=== PATIENT | male | born 1960 | race African-American/Black ===

== ENCOUNTER 2019-08-03 01:09 | Emergency (ER) | payer OTHER ==
[~2019-08-03] VITALS: Ht 182.9 cm; Wt 100.0 kg
[2019-08-03] MEDS ORDERED: SODIUM CHLORIDE 0.9% 1,000 ML IV ONE (03:22)
[2019-08-03 03:38] LABS: CHLORIDE 106 mEq/L (98-107)
[2019-08-03 03:40] LABS: BASOPHILS % 0.3 % (0.0-2.0); EOSINOPHILS % 1.3 % (0.0-5.0); HEMATOCRIT. 43.2 % (42.0-52.0); HEMOGLOBIN. 15.4 g/dL (14.0-18.0); LYMPHOCYTES % 25.9 % (20.0-50.0); MEAN CORPUSCULAR HEMOGLOBIN 33.1 pg (28.0-32.0); MEAN CORPUSCULAR VOLUME 92.7 fL (80.0-94.0); MEAN PLATELET VOLUME 7.9 fl (7.4-10.4); MONOCYTES % 6.7 % (2.0-8.0); NEUTROPHILS % 65.8 % (40.0-76.0); PLATELET 238 x1000/uL (130-400); RED BLOOD CELL COUNT 4.66 mill/uL (4.7-6.1); RED CELL DISTRIBUTION WIDTH 13.2 % (11.6-14.6)
[2019-08-03 03:40] LABS: CLARITY URINE CLEAR (CLEAR); COLOR URINE DARK YELLOW (YELLOW); KETONES URINE 3+ (NEGATIVE); LEUKOCYTE ESTERASE URINE NEGATIVE (NEGATIVE); NITRITE URINE NEGATIVE (NEGATIVE); OCCULT BLOOD URINE NEGATIVE (NEGATIVE); PH URINE 7.5 (4.5-8.0); PROTEIN URINE TRACE (NEGATIVE); SPECIFIC GRAVITY URINE 1.034 (1.005-1.030)
[2019-08-03 03:44] LABS: ETHANOL BLOOD < 10 mg/dL
[2019-08-03 05:40] VITALS: BP 151/93
== END 2019-08-03 05:49 | disposition home or self-care (01) ==
LOC: ER 01:09
DX: R10.30 Lower abdominal pain, unspecified (principal); K29.00 Acute gastritis without bleeding; Z85.46 Personal history of malignant neoplasm of prostate; Z90.79 Acquired absence of other genital organ(s); Z88.8 Allergy status to other drugs, medicaments and biological substances
CPT/HCPCS: 36415; 80053; 80320; 81003; 83690; 85025; 96360; 99283; J7030; G0480

== ENCOUNTER 2025-09-16 07:35 | Inpatient (IN) | payer OTHER ==
[~2025-09-16] VITALS: Ht 175.3 cm; Wt 110.2 kg
[2025-09-16] VITALS (14 sets, daily range): BP systolic 139–169; BP diastolic 91–103; PULSE 73–91; RESP 19–30; TEMP 35.9–36.4; O2SAT 97–100
[2025-09-16] MEDS: MAGNESIUM 2 G PREMIX 50 ML IV ONE (07:59)
[2025-09-16] MEDS: METHYLPREDNISOLONE SOD SUCC 125MG/2ML (ACT-O-VIAL) IV ONE (07:59)
[2025-09-16] MEDS: ALBUTEROL (0.083%) 2.5MG/3ML NEB HHN SCH (08:52)
[2025-09-16] MEDS: IPRATROPIUM BROMIDE (0.02%) 0.5MG/2.5ML NEB HHN SCH (08:52)
[2025-09-16 09:19] LABS: BASOPHILS % 0.7 % (0.0-2.0); EOSINOPHILS % 2.8 % (0.0-5.0); HEMATOCRIT. 43.9 % (42.0-52.0); HEMOGLOBIN. 14.9 g/dL (14.0-18.0); LYMPHOCYTES % 19.5 % (20.0-50.0); MEAN PLATELET VOLUME 7.3 fl (7.4-10.4); MONOCYTES % 8.8 % (2.0-8.0); NEUTROPHILS % 68.2 % (40.0-76.0); PLATELET 253 x1000/uL (130-400); RED BLOOD CELL COUNT 4.65 mill/uL (4.7-6.1); RED CELL DISTRIBUTION WIDTH 13.6 % (11.6-14.6)
[2025-09-16 09:38] LABS: CREATININE 1.1 mg/dL (0.6-1.3); TROPONIN I HIGH SENSITIVITY 11 ng/L (3.0-53); UREA NITROGEN BLOOD 11 mg/dL (9-23)
[2025-09-16] MEDS: LEVOFLOXACIN 500MG PREMIX 100 ML IV ONE (10:29)
[2025-09-16] MEDS ORDERED: CLONIDINE 0.1MG TABLET PO PRN (12:30)
[2025-09-16] MEDS ORDERED: ONDANSETRON HCL 4MG/2ML INJ IV PRN (12:30)
[2025-09-16] MEDS ORDERED: ACETAMINOPHEN 325MG TABLET PO PRN (12:30)
[2025-09-16] MEDS ORDERED: DOCUSATE SODIUM 100MG CAPSULE PO PRN (12:30)
[2025-09-16] MEDS ORDERED: IPRATROPIUM/ALBUTEROL 0.5-3(2.5)MG/3ML NEB HHN PRN (12:30)
[2025-09-16] MEDS: ACETAMINOPHEN 325MG TABLET PO PRN (13:51)
[2025-09-16] MEDS: ENOXAPARIN 30MG/0.3ML SYR SUBCUT SCH (17:53)
[2025-09-16] MEDS: GUAIFENESIN/DM 600MG/30MG ER TAB 12HR PO PRN (18:05)
[2025-09-16] MEDS: BENZONATATE 100MG CAPSULE PO PRN (18:06)
[2025-09-16] MEDS: FLUTICASONE PROPIONATE 50MCG/SPRAY BOTTLE BOTHNSTRLS SCH (18:07)
[2025-09-16] MEDS: IPRATROPIUM/ALBUTEROL 0.5-3(2.5)MG/3ML NEB HHN SCH (20:08)
[2025-09-16] MEDS: GUAIFENESIN 600MG ER TABLET PO SCH (21:03)
[2025-09-17] VITALS (13 sets, daily range): BP systolic 122–153; BP diastolic 74–105; PULSE 79–87; RESP 19–26; TEMP 36.4–37.2; O2SAT 91–97
[2025-09-17 06:19] LABS: CREATININE 0.9 mg/dL (0.6-1.3); UREA NITROGEN BLOOD 15 mg/dL (9-23)
[2025-09-17 06:21] LABS: ASPARTATE AMINOTRANSFERASE 15 IU/L (<34); BILIRUBIN TOTAL 1.1 mg/dL (0.1-1.0); PROTEIN TOTAL 7.1 g/dL (6.0-8.3)
[2025-09-17 06:23] LABS: BASOPHILS % 0.1 % (0.0-2.0); EOSINOPHILS % 0.0 % (0.0-5.0); HEMATOCRIT. 43.0 % (42.0-52.0); HEMOGLOBIN. 14.3 g/dL (14.0-18.0); LYMPHOCYTES % 9.3 % (20.0-50.0); MEAN PLATELET VOLUME 7.6 fl (7.4-10.4); MONOCYTES % 8.2 % (2.0-8.0); NEUTROPHILS % 82.4 % (40.0-76.0); PLATELET 275 x1000/uL (130-400); RED BLOOD CELL COUNT 4.51 mill/uL (4.7-6.1); RED CELL DISTRIBUTION WIDTH 13.4 % (11.6-14.6)
[2025-09-17 08:42] LABS: *AMPHETAMINES SCREEN URINE NEGATIVE (NEGATIVE)
[2025-09-17 08:44] LABS: *BARBITURATES SCREEN URINE NEGATIVE (NEGATIVE); *BENZODIAZEPINES SCREEN URINE NEGATIVE (NEGATIVE); *COCAINE SCREEN URINE NEGATIVE (NEGATIVE); CANNABINOID URINE SCREEN NEGATIVE (NEGATIVE); ECSTASY MDMA SCREEN URINE NEGATIVE (NEGATIVE); METHADONE URINE SCREEN NEGATIVE (NEGATIVE); OPIATES URINE SCREEN PRESUMPTIVE POSITIVE (NEGATIVE); PHENCYCLIDINE URINE SCREEN NEGATIVE (NEGATIVE)
[2025-09-17] MEDS ORDERED: LOSA100T33 PO (14:47)
[2025-09-17] MEDS ORDERED: HYDR12.54 PO (14:47)
[2025-09-17] MEDS ORDERED: ALBU18HF2 IH (15:37)
[2025-09-17] MEDS ORDERED: GUAI600T44 PO (15:37)
[2025-09-17] MEDS ORDERED: FLUT9.9S BOTHNSTRLS (15:37)
[2025-09-17] MEDS: POTASSIUM CHLORIDE 20MEQ TABLET SR PO SCH (17:21)
== END 2025-09-17 18:21 | disposition admitted as inpatient to this hospital (09) | DRG 189 ==
LOC: ER 07:35 → 5EST 10:00 → ENRESERV 10:40
PROVIDERS: ADMIT Internal Medicine; ATTEND Internal Medicine
PROC: 5A09357 Assistance with Respiratory Ventilation, Less than 24 Consecutive Hours, Continuous Positive Airway Pressure (ICD-10-PCS; principal; 2025-09-16)
DX: J96.00 Acute respiratory failure, unspecified whether with hypoxia or hypercapnia (principal); J44.1 Chronic obstructive pulmonary disease with (acute) exacerbation; J98.11 Atelectasis; J06.9 Acute upper respiratory infection, unspecified; R73.9 Hyperglycemia, unspecified; I10 Essential (primary) hypertension; E66.9 Obesity, unspecified; Z79.899 Other long term (current) drug therapy; Z68.35 Body mass index [BMI] 35.0-35.9, adult; Z85.46 Personal history of malignant neoplasm of prostate; Z88.8 Allergy status to other drugs, medicaments and biological substances; Z90.79 Acquired absence of other genital organ(s)
CPT/HCPCS: 36415; 71045; 80048; 80053; 80305; 83880; 84484; 85025; 87426; 93005; 94070; 94640; 94660; 94664; 96365; 96375; 98960; 99291; J1650; J1956; J2919; J3475